=== PATIENT | male | born 1980 | race Caucasian/White ===

== ENCOUNTER 2018-11-06 17:23 | Emergency (ER) | payer OTHER ==
[~2018-11-06] VITALS: Ht 175.3 cm; Wt 83.9 kg
[2018-11-06 17:46] VITALS: BP 110/68
[2018-11-06] MEDS ORDERED: LIDOCAINE 1% Multi-Dose 20 ML VIAL. ONE (18:24)
[2018-11-06] MEDS ORDERED: CEPH-264 PO (18:56)
--- NOTE | 2018-11-06 18:56 | PHYS DOC ---
Past History Past Medical History: No Pertinent History Past Surgical History: Other Alcohol Use: None Drug Use: None Adult General Chief Complaint Chief Complaint: FINGER INJURY HPI HPI Patient is a 38 year old male who presents with complaint of a wooden splinter foreign body in the right hand. Patient states he works as a [employer] and accidentally got a wooden sliver in his right hand yesterday. States that he tried to remove it himself but was unable to. Notes that his more painful today. States that it may have been approximately 1 inch and went diagonally into the palm of his right hand near his right thumb. Denies any other injuries. Review of Systems Review of Systems Constitutional: Denies fever or chills [] Eyes: Denies change in visual acuity, redness, or eye pain [] HENT: Denies nasal congestion or sore throat [] Respiratory: Denies cough or shortness of breath [] Cardiovascular: Denies chest pain or edema[] GI: Denies abdominal pain, nausea, vomiting, bloody stools or diarrhea [] : Denies dysuria or hematuria [] Musculoskeletal: Denies back pain or joint pain [] Integument: Foreign body in right hand [] Neurologic: Denies headache, focal weakness or sensory changes [] All other systems were reviewed and found to be within normal limits, except as documented in this note. Current Medications Current Medications Current Medications Medications (Trade) Dose Ordered Sig/Cassandra Start Time Stop Time Status Last Admin Dose Admin Lidocaine HCl 20 ml STK-MED ONCE 11/06/18 18:24 11/06/18 18:25 DC Lidocaine/ Epinephrine (Xylocaine 1%-Epi 1:100,000) 20 ml 1X ONCE 11/06/18 18:30 11/06/18 18:31 UNV Allergies Allergies Allergies Coded Allergies Type Severity Reaction Last Updated Verified No Known Drug Allergies 11/06/18 No Physical Exam Physical Exam Constitutional: Alert, afebrile, no acute distress. [] HENT: Normocephalic, atraumatic, bilateral external ears normal, oropharynx moist, no oral exudates, nose normal. [] Eyes: PERRLA, EOMI, conjunctiva normal, no discharge. [] Neck: Normal range of motion, no tenderness, supple, no stridor. [] Cardiovascular:Heart rate regular rhythm, no murmur [] Lungs & Thorax: Bilateral breath sounds clear to auscultation [] Abdomen: Bowel sounds normal, soft, no tenderness, no masses, no pulsatile masses. [] Skin: Warm, dry, tip of wooden foreign body present in dermal layer of skin on volar aspect of right hand near the thenar eminence, localized tenderness to palpation. [] Back: No tenderness, no CVA tenderness. [] Extremities: No cyanosis, no clubbing, ROM intact, no edema. [] Neurologic: Alert and oriented X 3, normal motor function, normal sensory function, no focal deficits noted. [] Current Patient Data Vital Signs Vital Signs Date Time Temp Pulse Resp B/P (MAP) Pulse Ox O2 Delivery O2 Flow Rate FiO2 11/06/18 17:46 97.9 74 16 97 Room Air Lab Results Not performed EKG EKG Not performed[] Radiology/Procedures Radiology/Procedures Indication: Retained foreign body in right hand Procedure: The area of the foreign body was prepped with Betadine. Local anesthesia over the foreign body site was achieved with injection of lidocaine 1% with epinephrine. A 2 mm incision was made over the wooden foreign body through the epidermis and dermis. The wooden foreign body , which measured approximately 1" x 0.125" in size was then removed in its entirety with forceps. After the procedure the wound was dressed with antibiotic ointment and gauze. The patient's tetanus status was up-to-date. The patient tolerated the procedure without difficulty. Complications: None Course & Med Decision Making Course & Med Decision Making Pertinent Labs and Imaging studies reviewed. (See chart for details) Foreign body was removed as outlined in procedure note. Patient started on Keflex in the emergency department and will continue on seven-day course. Advised follow-up with primary doctor in 1 week for reevaluation as needed and return to emergency department for any worsening symptoms. Patient was understanding and agreement with treatment plan. Dragon Disclaimer Dragon Disclaimer This electronic medical record was generated, in whole or in part, using a voice recognition dictation system. Departure Departure: Impression: Primary Impression: Foreign body (FB) in soft tissue Disposition: HOME, SELF-CARE Condition: IMPROVED Referrals: PCP,NO (PCP) Patient Instructions: Foreign Body Additional Instructions: The wooden splinter foreign body in your hand was successfully able to be removed today. Be sure to change dressings to this area twice daily and apply antibiotic ointment each time with dressing changes. Follow up with your primary doctor in 1 week if symptoms are not improving and return to emergency department for any worsening symptoms. Scripts Cephalexin (KEFLEX) 500 Mg Capsule 1 CAP PO TID, #21 CAP Prov: TONY SAUCEDA MD 11/06/18 TONY SAUCEDA MD Nov 06, 2018 18:56
[2018-11-06] MEDS ORDERED: CEPHALEXIN 250 MG CAPSULE PO ONE (19:30)
[2018-11-06] MEDS ORDERED: LIDOCAINE 1%/EPI 1:100,000 20 ML VIAL. IJ ONE (19:30)
[2018-11-06] MEDS ORDERED: NEOMY/BACITR/POLYMYXIN OINT PACKET. TP ONE (19:30)
== END 2018-11-06 19:38 | disposition home or self-care (01) ==
LOC: ER 17:23
DX: S60.551A Superficial foreign body of right hand, initial encounter (principal); M79.5 Residual foreign body in soft tissue; X58.XXXA Exposure to other specified factors, initial encounter; Y93.89 Activity, other specified; Y92.89 Other specified places as the place of occurrence of the external cause; Y99.8 Other external cause status
CPT/HCPCS: 10120; 99284